=== PATIENT | female | born 1990 | race Caucasian/White ===

== ENCOUNTER 2025-05-23 10:52 | Inpatient (IN) | payer MEDICAID, OTHER ==
[~2025-05-23] VITALS: Ht 172.7 cm; Wt 83.3 kg
[2025-05-23 12:51] VITALS: O2SAT 98
[2025-05-23 12:59] LABS: COVID AG,FIA SOURCE NASAL SWAB
[2025-05-23 13:46] LABS: SARS-COV2 (COVID) ANTIGEN,FIA Negative (Negative)
[2025-05-23] MEDS ORDERED: ZOLPIDEM TARTRATE 10 MG TABLET PO PRN (14:00)
[2025-05-23 18:24] VITALS: BP 96/63; PULSE 88; RESP 18; TEMP 99.1; O2SAT 99
[2025-05-23 20:17] VITALS: BP 102/72; PULSE 89; RESP 17; TEMP 98.6; O2SAT 100
[2025-05-24] MEDS ORDERED: PETROLATUM,WHITE 28 GM JELLY TP PRN (06:00)
[2025-05-24] MEDS ORDERED: OMEPRAZOLE 20 MG CAPSULE PO PRN (06:00)
[2025-05-24] MEDS ORDERED: ALBUTEROL SULFATE HFA 90 MCG/PUFF 8 GM INHALER IH PRN (06:00)
[2025-05-24] MEDS ORDERED: MAG HYDROX/ALUMINUM HYD/SIMETH ES 30 ML SUSPENSION UDCUP PO PRN (06:00)
[2025-05-24] MEDS ORDERED: ACETAMINOPHEN 325 MG TABLET PO PRN (06:00)
[2025-05-24] MEDS ORDERED: MAGNESIUM HYDROXIDE SUSPENSION 30 ML UDCUP PO PRN (06:00)
[2025-05-24] MEDS ORDERED: DOCUSATE SODIUM 100 MG CAPSULE PO PRN (06:00)
[2025-05-24] MEDS ORDERED: BACITRACIN 28 GM OINTMENT TP PRN (06:00)
[2025-05-24] MEDS ORDERED: LOPERAMIDE HCL 2 MG CAPSULE PO PRN (06:00)
[2025-05-24] MEDS ORDERED: ONDANSETRON 4 MG TABLET PO PRN (06:00)
[2025-05-24] MEDS ORDERED: BENZOCAINE/MENTHOL [CEPACOL] LOZENGE PO PRN (06:00)
[2025-05-24] MEDS ORDERED: IBUPROFEN 600 MG TABLET PO PRN (06:00)
[2025-05-24 08:14] VITALS: RESP 16
[2025-05-24] MEDS: DIVALPROEX SODIUM 500 MG DR TABLET PO SCH (16:23)
[2025-05-24] MEDS ORDERED: DIVALPROEX SODIUM 500 MG DR TABLET PO SCH (17:00)
[2025-05-24 20:04] VITALS: BP 122/77; PULSE 83; RESP 17; TEMP 98.4; O2SAT 100
[2025-05-25 08:16] VITALS: RESP 18
[2025-05-26 08:07] VITALS: BP 113/68; PULSE 79; RESP 16; TEMP 97.8; O2SAT 96
[2025-05-26 20:21] VITALS: BP 122/80; PULSE 80; RESP 17; TEMP 98.1; O2SAT 99
[2025-05-27] MEDS ORDERED: DIVA-112 PO (09:49)
== END 2025-05-27 11:35 | disposition home or self-care (01) | DRG 753 ==
LOC: EMS 11:03 → B3A 15:50
PROVIDERS: ADMIT Psychiatry & Neurology Psychiatry; ATTEND Psychiatry & Neurology Psychiatry
DX: F31.9 Bipolar disorder, unspecified (principal); F25.9 Schizoaffective disorder, unspecified; F41.9 Anxiety disorder, unspecified; G47.00 Insomnia, unspecified; K59.00 Constipation, unspecified; R45.851 Suicidal ideations
CPT/HCPCS: 99285; Z7502; Z7610